=== PATIENT | male | born 1995 | race Two or more races ===

== ENCOUNTER 2022-04-27 16:30 | Emergency (ER) | payer OTHER ==
[~2022-04-27] VITALS: Ht 180.3 cm; Wt 117.1 kg
[2022-04-27 17:02] VITALS: BP 148/84
== END 2022-04-28 00:10 | disposition left against medical advice (07) ==
LOC: ER 16:30
DX: S01.81XA Laceration without foreign body of other part of head, initial encounter (principal); Z53.21 Procedure and treatment not carried out due to patient leaving prior to being seen by health care provider; X58.XXXA Exposure to other specified factors, initial encounter; Y93.67 Activity, basketball; Y92.89 Other specified places as the place of occurrence of the external cause; Y99.8 Other external cause status